=== PATIENT | female | born 1945 | race Caucasian/White ===

== ENCOUNTER 2017-09-27 01:57 | Emergency (ER) | payer OTHER ==
[~2017-09-27] VITALS: Ht 167.6 cm; Wt 81.6 kg
[2017-09-27 02:17] VITALS: Ht 167.6 cm; Wt 81.6 kg
[2017-09-27 05:13] VITALS: BP 124/53
== END 2017-09-27 05:13 | disposition home or self-care (01) ==
LOC: ED 01:57
DX: E11.649 Type 2 diabetes mellitus with hypoglycemia without coma (principal)
CPT/HCPCS: 82962

== ENCOUNTER 2019-10-09 15:48 | Emergency (ER) | payer OTHER ==
[~2019-10-09] VITALS: Ht 167.6 cm; Wt 98.4 kg
[2019-10-09 16:01] VITALS: Ht 167.6 cm; Wt 98.4 kg
[2019-10-09 19:14] VITALS: BP 109/51
== END 2019-10-09 19:14 | disposition home or self-care (01) ==
LOC: ED 15:48
DX: S30.0XXA Contusion of lower back and pelvis, initial encounter (principal); E11.9 Type 2 diabetes mellitus without complications; Z88.0 Allergy status to penicillin; W18.39XA Other fall on same level, initial encounter; Y93.89 Activity, other specified; Y92.89 Other specified places as the place of occurrence of the external cause; Y99.8 Other external cause status